=== PATIENT | male | born 1985 | race African-American/Black ===

== ENCOUNTER 2023-10-27 23:31 | Emergency (ER) | payer MEDICAID ==
[~2023-10-27] VITALS: Ht 172.7 cm; Wt 80.0 kg
[2023-10-27] MEDS: HALOPERIDOL LACTATE 5MG/ML VIAL IM STA
[2023-10-27] MEDS: LORAZEPAM 2MG/ML INJ IM STA
[2023-10-27] MEDS: DIPHENHYDRAMINE 50MG/ML VIAL IM STA
[~2023-10-27 23:31] MED LIST: DIVA-18 PO; QUET50TA PO
[2023-10-28 01:58] LABS: CHLORIDE 108 mEq/L (98-107); SODIUM 141 mEq/L (136-145)
[2023-10-28 01:59] LABS: CARBON DIOXIDE 25 mEq/L (21-32)
[2023-10-28 02:00] LABS: CALCIUM 8.9 mg/dL (8.7-10.4)
[2023-10-28 02:04] LABS: CREATININE 0.8 mg/dL (0.6-1.3); GLUCOSE 87 mg/dL (70-105)
[2023-10-28 02:05] LABS: BASOPHILS % 0.5 % (0.0-2.0); HEMATOCRIT. 37.4 % (42.0-52.0); HEMOGLOBIN. 12.4 g/dL (14.0-18.0); LYMPHOCYTES % 24.5 % (20.0-50.0); MEAN CORPUSCULAR HEMOGLOBIN 28.3 pg (28.0-32.0); MEAN CORPUSCULAR VOLUME 85.7 fL (80.0-94.0); MEAN PLATELET VOLUME 7.5 fl (7.4-10.4); MONOCYTES % 6.5 % (2.0-8.0); NEUTROPHILS % 66.5 % (40.0-76.0); PLATELET 469 x1000/uL (130-400); RED BLOOD CELL COUNT 4.37 mill/uL (4.7-6.1); RED CELL DISTRIBUTION WIDTH 15.6 % (11.6-14.6); UREA NITROGEN BLOOD 12 mg/dL (9-23); WHITE BLOOD COUNT 7.8 x1000/uL (4.5-11.0)
[2023-10-28 02:06] LABS: ACETAMINOPHEN < 2 ug/mL (10-30); ALANINE AMINOTRANSFERASE 12 IU/L (10-49); ALBUMIN 4.1 g/dL (3.2-4.8); ASPARTATE AMINOTRANSFERASE 19 IU/L (<34); CREATINE KINASE 443 IU/L (46-171)
[2023-10-28 02:07] LABS: BILIRUBIN DIRECT 0.1 mg/dL (<=3.0); BILIRUBIN TOTAL 0.3 mg/dL (0.1-1.0); PROTEIN TOTAL 7.2 g/dL (6.0-8.3)
[2023-10-28 02:10] LABS: ETHANOL BLOOD < 10 mg/dL (<10)
[2023-10-28] MEDS: LORAZEPAM 2MG/ML INJ IM ONE (11:30)
[2023-10-28] MEDS: HALOPERIDOL LACTATE 5MG/ML VIAL IM ONE ×2 (11:59→23:24)
[2023-10-28] MEDS: DIPHENHYDRAMINE 50MG/ML VIAL IM ONE (11:59)
[2023-10-28] MEDS: SODIUM CHLORIDE 0.9% 1,000 ML IV ONE ×2 (23:24)
[2023-10-28] MEDS: MIDAZOLAM HCL 2 MG/2 ML VIAL IM ONE (23:25)
[2023-10-29] MEDS: LORAZEPAM 2MG/ML INJ IM ONE (09:26)
[2023-10-29] MEDS: OLANZAPINE 10 MG/VIAL IM ONE (09:26)
[2023-10-29 18:43] LABS: CLARITY URINE CLEAR (CLEAR); COLOR URINE DARK YELLOW (YELLOW); GLUCOSE URINE NEGATIVE (NEGATIVE); KETONES URINE 1+ (NEGATIVE); LEUKOCYTE ESTERASE URINE NEGATIVE (NEGATIVE); NITRITE URINE NEGATIVE (NEGATIVE); OCCULT BLOOD URINE NEGATIVE (NEGATIVE); PH URINE 5.5 (4.5-8.0); PROTEIN URINE TRACE (NEGATIVE); SPECIFIC GRAVITY URINE 1.033 (1.005-1.030)
[2023-10-29 18:51] LABS: *AMPHETAMINES SCREEN URINE PRESUMPTIVE POSITIVE (NEGATIVE); *BARBITURATES SCREEN URINE NEGATIVE (NEGATIVE); *BENZODIAZEPINES SCREEN URINE NEGATIVE (NEGATIVE); *COCAINE SCREEN URINE NEGATIVE (NEGATIVE); METHADONE URINE SCREEN NEGATIVE (NEGATIVE); OPIATES URINE SCREEN NEGATIVE (NEGATIVE)
[2023-10-29 18:52] LABS: CANNABINOID URINE SCREEN PRESUMPTIVE POSITIVE (NEGATIVE); ECSTASY MDMA SCREEN URINE NEGATIVE (NEGATIVE); PHENCYCLIDINE URINE SCREEN NEGATIVE (NEGATIVE)
[2023-10-29 18:59] LABS: BACTERIA URINE NONE SEEN; SQUAMOUS EPITHELIAL CELL URINE 1+ /lpf (RARE/1+); WBC URINE 0-2 /hpf (0-2)
[2023-10-29] MEDS: OLANZAPINE 5MG TABLET ODT PO SCH (21:29)
[2023-10-30] MEDS: HALOPERIDOL LACTATE 5MG/ML VIAL IM ONE (03:00)
[2023-10-30 04:00] VITALS: O2SAT 94
[2023-10-30] MEDS: MIDAZOLAM HCL 2 MG/2 ML VIAL IM ONE (04:00)
[2023-10-30 11:39] VITALS: BP 129/79; PULSE 74; RESP 16; TEMP 98.2
== END 2023-10-30 11:46 ==
LOC: ER 23:36
DX: F29 Unspecified psychosis not due to a substance or known physiological condition (principal); F12.10 Cannabis abuse, uncomplicated; F15.90 Other stimulant use, unspecified, uncomplicated; Z00.00 Encounter for general adult medical examination without abnormal findings; Z98.890 Other specified postprocedural states; Z86.59 Personal history of other mental and behavioral disorders; Z20.822 Contact with and (suspected) exposure to COVID-19
CPT/HCPCS: 80076; 80305; 80048; 81003; 80307; 80329; 80320; 82550; 83605; 85025; 36415; 96372 ×4; 99291; 87426; J7030; J1200; J1630; J2060 ×2; J2250 ×2; J3490; G0480